=== PATIENT | female | born 1975 | race Caucasian/White ===

== ENCOUNTER 2020-07-11 07:04 | Outpatient (NON) | payer BC, SELFPAY ==
[2020-07-13 11:41] LABS: SARS-CoV-2 RNA PCR Negative
== END 2020-07-11 07:05 ==
PROVIDERS: PCP Family Medicine; Visit Provider Physician Assistant
DX: R05 Cough (principal); Z20.828 Contact with and (suspected) exposure to other viral communicable diseases
CPT/HCPCS: 87635; C9803; U0003

== ENCOUNTER → 2020-11-19 13:54 | Outpatient (CLI) | payer BC, SELFPAY ==
--- NOTE | ~2020-11-19 | MR_ITS ---
EXAMINATION: MR lumbar spine wo con DATE: 11/19/2020 14:28 INDICATION: Low back pain. Lumbar radiculopathy. TECHNIQUE: Magnetic resonance imaging (MRI) of the lumbar spine was performed without intravenous con trast. Sequences included sagittal T2-weighted FSE, sagittal T2-weighted FS FSE, sagittal T1-weighted FSE, and axial T2-weighted FSE. COMPARISON: CT abdomen and pelvis 02/26/13 FINDINGS: Bone alignment is normal. Vertebral body heights are normal. Intervertebral disc heights ar e normal. The distal spinal cord signal intensity is normal. The conus medullaris is at L2. The follo wing disc levels are specifically discussed: L1-L2: The disc does not extend beyond the endplate margin. There is mild bilateral facet joint osteo arthritis. There is no neural foraminal stenosis. There is no central canal stenosis. L2-L3: The disc does not extend beyond the endplate margin. There is mild bilateral facet joint osteo arthritis. There is no neural foraminal stenosis. There is no central canal stenosis. L3-L4: The disc does not extend beyond the endplate margin. There is mild bilateral facet joint osteo arthritis. There is no neural foraminal stenosis. There is no central canal stenosis. L4-L5: There is a left foraminal protrusion. There is mild bilateral facet joint osteoarthritis. Ther e is mild left neural foraminal stenosis. There is no central canal stenosis. L5-S1: There is a central protrusion with annular fissure. There is no facet joint osteoarthritis. Th ere is no neural foraminal stenosis. There is mild central canal stenosis. IMPRESSION: 1. Mild lumbar spondylosis. Reviewed, dictated and finalized at location A. KEEPER IMPRESSION: 1. Mild lumbar spondylosis.
== END ==
PROVIDERS: PCP Family Medicine; Visit Provider Physician Assistant Medical
DX: M47.26 Other spondylosis with radiculopathy, lumbar region (principal)
CPT/HCPCS: 72148

== ENCOUNTER 2021-01-07 13:02 | Outpatient (CLI) | payer BC, SELFPAY | END 2021-01-07 13:03 | disposition home or self-care (01) | LOC: ANHCOVIDVC 13:02 | PROVIDERS: PCP Family Medicine | DX: Z23 Encounter for immunization (principal) | CPT/HCPCS: 0001A; 91300 ==

== ENCOUNTER → 2021-01-07 14:00 | Outpatient (CLI) | payer BC, SELFPAY ==
--- NOTE | ~2021-01-07 | MM_ITS ---
EXAMINATION: MM screening felicia BI w malka HISTORY: Screening TECHNIQUE: Craniocaudal and mediolateral oblique 3-D tomosynthesis images were obtained and synthetic 2-D images were generated. CAD analysis was submitted and interpreted. COMPARISON: Comparison to multiple prior studies sequentially, with oldest reviewed study dated 03/21. BREAST PARENCHYMAL COMPOSITION: The breasts are heterogeneously dense, which may obscure small masses . FINDINGS: There is no evidence of suspicious mass, calcification, or architectural distortion to sugg est malignancy in either breast. There has been no suspicious interval change. IMPRESSION: 1. No mammographic evidence of malignancy. 2. Recommend routine screening mammography in one year. BI-RADS Category 1: Negative Reviewed, dictated and finalized at location A.
== END ==
PROVIDERS: Visit Provider Nurse Practitioner
DX: Z12.31 Encounter for screening mammogram for malignant neoplasm of breast (principal)
CPT/HCPCS: 77063; 77067

== ENCOUNTER 2021-01-28 13:00 | Outpatient (CLI) | payer BC, SELFPAY | END 2021-01-28 13:01 | disposition home or self-care (01) | LOC: ANHCOVIDVC 13:00 | DX: Z23 Encounter for immunization (principal) | CPT/HCPCS: 0002A; 91300 ==

== ENCOUNTER → 2022-01-24 15:56 | Outpatient (CLI) | payer BC, SELFPAY ==
--- NOTE | ~2022-01-24 | MM_ITS ---
EXAMINATION: MM screening felicia BI w malka HISTORY: Screening mammogram TECHNIQUE: Craniocaudal and mediolateral oblique 3-D tomosynthesis images were obtained and synthetic 2-D images were generated. CAD analysis was submitted and interpreted. COMPARISON: January 08, 2021, July 15, 2019, June 04, 2018 bilateral screening mammogram exam inations BREAST PARENCHYMAL COMPOSITION: The breasts are heterogeneously dense, which may obscure small masses . FINDINGS: There is no evidence of suspicious mass, calcification, or architectural distortion to sugg est malignancy in either breast. There has been no suspicious interval change. IMPRESSION: 1. No mammographic evidence of malignancy. 2. Recommend routine screening mammography in one year. BI-RADS Category 1: Negative Reviewed, dictated and finalized at location A.
== END ==
PROVIDERS: PCP Nurse Practitioner; Visit Provider Nurse Practitioner
DX: Z12.31 Encounter for screening mammogram for malignant neoplasm of breast (principal)
CPT/HCPCS: 77063; 77067

== ENCOUNTER 2022-04-11 12:10 | Emergency (ER) | payer BC, SELFPAY ==
[2022-04-11 12:32] VITALS: BP 150/90; PULSE 81; RESP 18; TEMP 36.9; O2SAT 100
--- NOTE | 2022-04-11 13:06 | ED.URI ---
HPI - URI/Sore Throat General Chief Complaint: Upper Respiratory Infection Stated Complaint: sinus pain and pressure,cough Time Seen by Provider: 04/11/22 12:54 Source: patient Mode of arrival: ambulatory Limitations: no limitations History of Present Illness HPI Narrative: Patient presents today with a 5-day history of sinus pressure, postnasal drip, nonproductive cough. Denies shortness of breath, fever, sore throat. She has been taking Mucinex D with mild relief. She did a home COVID-19 test 4 days ago that was negative. Related Data Home Medications Medication Instructions Recorded Confirmed escitalopram oxalate 10 mg tablet 10 mg PO DAILY 12/21/20 04/11/22 (Lexapro) norethindrone-e.estradiol 1 tablet DAILY 04/11/22 04/11/22 triphasic 0.5 mg/0.75 mg/1 mg-35 mcg tablet (Nortrel (28)) Allergies Allergy/AdvReac Type Severity Reaction Status Date / Time No Known Allergies Verified 04/11/22 12:42 Review of Systems Review of Systems: CONSTITUTIONAL: Denies body aches, fever, chills, or sweats. EYES: Denies visual changes, redness, or discharge. ENT: Denies rhinorrhea, sore throat, or otalgia.+ Sinus pressure, postnasal drip, nasal congestion CARDIOVASCULAR: Denies chest pain, palpitations, or edema. RESPIRATORY: Denies dyspnea.+ Cough GASTROINTESTINAL: Denies abdominal pain, nausea, vomiting, or diarrhea. GENITOURINARY: Denies dysuria or hematuria. SKIN: Denies rash, itching, or wounds. MUSCULOSKELETAL: Denies back pain, joint pain, or myalgia. NEUROLOGIC: Denies headache, numbness, tingling, or weakness. PSYCH: Denies depression or anxiety. [facility] Surgical History Surgical History History of mandibular surgery 2016 History of plastic surgery Social History Social History Alcohol intake: never Comments At time of signature, I have reviewed and agree with nursing past medical, surgical, social and family history unless otherwise noted. Please see nursing chart for further information. There is no relevant family history pertinent to the presenting complaint Exam Narrative: GENERAL: Mildly ill-appearing, well-nourished, and in no acute distress. HEAD: Normocephalic, atraumatic. EYES: EOMI. No redness or drainage. Conjunctivae normal. ENT: Mucous membranes pink and moist. Nares congested. Bilateral erythematous and swollen nasal turbinates without drainage. TMs normal bilaterally. Throat normal. Uvula midline. NECK: Normal AROM. Supple. No lymphadenopathy. CHEST: No respiratory distress. Clear to auscultation. Harsh cough noted. HEART: Regular rate and rhythm. No murmur appreciated. Normal peripheral pulses. EXTREMITIES: Normal range of motion. No edema. SKIN: Warm, dry, no rash. Capillary refill normal. Normal skin turgor. NEURO: No focal deficits. Alert and oriented x3. Gait steady. PSYCH: Normal affect. No signs of depression or anxiety. Course Course Level of Care: Express Care Visit Vital Signs Vital signs: Vital Signs Temperature 98.4 F 04/11/22 12:32 Pulse Rate 81 04/11/22 12:32 Respiratory Rate 18 04/11/22 12:32 Blood Pressure 150/90 H 04/11/22 12:32 Pulse Oximetry 100 04/11/22 12:32 Oxygen Delivery Room Air 04/11/22 12:32 Temperature 98.4 F 04/11/22 12:32 Pulse Rate 81 04/11/22 12:32 Respiratory Rate 18 04/11/22 12:32 Blood Pressure 150/90 H 04/11/22 12:32 Pulse Oximetry 100 04/11/22 12:32 Oxygen Delivery Room Air 04/11/22 12:32 Reviewed. Pt has been instructed to follow up with her PCP regarding her elevated blood pressure today. MDM - URI/Sore Throat Differential Diagnosis Differential diagnosis: Likely upper respiratory infection, sinusitis, viral infection and bronchitis Critical Care Time Critical Care Time Critical Care Time: No Discharge Plan Discharge Clinical Impression: Bro
== END 2022-04-11 13:18 | disposition home or self-care (01) ==
PROVIDERS: Emergency Provider Nurse Practitioner; PCP Family Medicine
DX: J40 Bronchitis, not specified as acute or chronic (principal); J06.9 Acute upper respiratory infection, unspecified
CPT/HCPCS: 99213; G0463

== ENCOUNTER 2022-07-14 01:42 | Day surgery (SDC) | payer BC, SELFPAY ==
[2022-07-14 08:52] VITALS: BP 168/99; PULSE 114; RESP 24; TEMP 36.6; O2SAT 100; BMI 31.2
[2022-07-14] MEDS: LACTATED RINGERS 1,000 ML 150 ML IV CONT (09:08)
--- NOTE | 2022-07-14 09:16 | SUR.PREOP ---
MD Marrufo made aware of Vitals. Pt last took medications on the . denies any symptoms. no new orders.
--- NOTE | 2022-07-14 09:28 | PM.HPGS ---
History of Present Illness History of Present Illness Consent: Risks, benefits, and alternatives have been discussed and questions answered. Patient agrees to proceed with procedure. Chief complaint: neoplasm screening Narrative: Lisbeth Norwood is a 46 year old female Presents for screening colonoscopy. Because she has attained the age of 46. Patient's current weight appetite bowel movements are normal. Patient denies abdominal pain. She has had no bleeding. Patient reports episode of diverticulitis in January of this year. Her bowel habits have returned to normal. She no longer has abdominal pain. Family history is noncontributory. Current bowel movements are normal. Review of Systems Review of Systems: Review of systems noncontributory. [facility] Surgical History Surgical History History of mandibular surgery 2016 History of plastic surgery Social History Social History (Updated 05/23/22 @ 15:45 by Jolie Oswald MA) Smoking status: Former smoker Tobacco type: cigarettes Alcohol intake: never Substance use: never Substance use type: does not use Living arrangements: with family Spiritual care concerns: No Agree to blood products: Yes Meds Home Medications and Allergies Home Medications Medication Instructions Recorded Confirmed Type escitalopram oxalate 10 mg tablet 10 mg PO DAILY 12/21/20 06/29/22 History (Lexapro) atorvastatin 10 mg tablet 10 mg PO DAILY #90 tabs 08/30/21 06/29/22 Rx nebivolol 5 mg tablet (Bystolic) 5 mg PO DAILY #90 tabs 10/18/21 06/29/22 Rx albuterol sulfate 90 mcg/actuation 2 puff inhalation Q4-6H PRN 04/11/22 06/29/22 Rx aerosol inhaler (ProAir HFA) shortness of breath or wheezing #18 grams norethindrone-e.estradiol 1 tablet PO DAILY 04/11/22 06/29/22 History triphasic 0.5 mg/0.75 mg/1 mg-35 mcg tablet (Nortrel (28)) duloxetine 20 mg capsule,delayed 20 mg PO DAILY 05/23/22 06/29/22 History release (Cymbalta) gabapentin 600 mg tablet See Rx Instructions PO DAILY 05/23/22 06/29/22 History sodium,potassium,mag sulfates 17.5 See Rx Instructions PO .COMPLEX 06/02/22 07/14/22 Rx gram-3.13 gram-1.6 gram oral soln #354 mL (Suprep Bowel Prep Kit) Allergies Allergy/AdvReac Type Severity Reaction Status Date / Time No Known Allergies Allergy Verified 07/14/22 08:44 Vital Signs Vital Signs - 24 hr 07/14/22 08:52 Temperature 97.8 F Pulse Rate 114 H Respiratory Rate 24 H Blood Pressure 168/99 H Pulse Oximetry 100 Oxygen Delivery Room Air Exam Narrative: Physical exam reveals patient to be alert. Vital signs stable. HEENT exam is unremarkable. Patient is anicteric. Lungs are clear to auscultation and percussion. Heart is without murmur or extra sounds. Abdomen bowel sounds are present soft nontender with no organomegaly. Digital external rectal exam is normal. Assessment and Plan Assessment and plan (1) Encounter for screening colonoscopy: Code(s): Z12.11 - Encounter for screening for malignant neoplasm of colon Status: Acute Assessment and Plan: Patient presents for screening colonoscopy. Appears to be at average risk for colon polyps. Plan is for high-fiber diet. Further recommendations will be given after endoscopy.
--- NOTE | 2022-07-14 09:30 | P.PNAN_ITS ---
Anes - Initial Pre Proc Eval Procedure: Operation Date: 07/14/22 09:30 Proposed Procedures p Screening Colonoscopy - Eliel Gauthier MD Date/Time: 07/14/22 09:30 Surgeon: Eliel Gauthier MD Pre Op Diagnosis: neoplasm screening Patient Data Age: 46 Gender: F Height: 1.65 m Weight: 85.1 kg Last Vital Signs Temp 97.8 F 07/14/22 08:52 Pulse 114 H 07/14/22 08:52 Resp 24 H 07/14/22 08:52 BP 168/99 H 07/14/22 08:52 Pulse Ox 100 07/14/22 08:52 O2 Del Method Room Air 07/14/22 08:52 Allergies Allergy/AdvReac Type Severity Reaction Status Date / Time No Known Allergies Allergy Verified 07/14/22 08:44 Home Medications Medication Instructions Recorded Confirmed Type escitalopram oxalate 10 mg tablet 10 mg PO DAILY 12/21/20 06/29/22 History (Lexapro) atorvastatin 10 mg tablet 10 mg PO DAILY #90 tabs 08/30/21 06/29/22 Rx nebivolol 5 mg tablet (Bystolic) 5 mg PO DAILY #90 tabs 10/18/21 06/29/22 Rx albuterol sulfate 90 mcg/actuation 2 puff inhalation Q4-6H PRN 04/11/22 06/29/22 Rx aerosol inhaler (ProAir HFA) shortness of breath or wheezing #18 grams norethindrone-e.estradiol 1 tablet PO DAILY 04/11/22 06/29/22 History triphasic 0.5 mg/0.75 mg/1 mg-35 mcg tablet (Nortrel (28)) duloxetine 20 mg capsule,delayed 20 mg PO DAILY 05/23/22 06/29/22 History release (Cymbalta) gabapentin 600 mg tablet See Rx Instructions PO DAILY 05/23/22 06/29/22 History sodium,potassium,mag sulfates 17.5 See Rx Instructions PO .COMPLEX 06/02/22 07/14/22 Rx gram-3.13 gram-1.6 gram oral soln #354 mL (Suprep Bowel Prep Kit) Patient hx anesthesia problems: none Family hx anesthesia problems: none Results Review: All pre-operative results and documents have been reviewed as part of the pre- operative evaluation. PMFSH Surgical History Surgical History History of mandibular surgery 2016 History of plastic surgery Social History Social History (Updated 05/23/22 @ 15:45 by Jolie Oswald MA) Smoking status: Former smoker Tobacco type: cigarettes Alcohol intake: never Substance use: never Substance use type: does not use Living arrangements: with family Spiritual care concerns: No Agree to blood products: Yes Anes - Eval Final PreProcedure Day of Procedure 07/14/22 09:30 Patient weight: obese Heart: regular rate and rhythm Lungs: clear to auscultation Airway: Mallampati scale class II Neurological: alert and oriented Last oral intake: >/= 8 hours ASA classification: III Emergent: no Anesthetic plan: proceed Anesthesia type and monitoring: general GIVS and standard monitoring Results Review: All pre-operative results and documents have been reviewed as part of the pre- operative evaluation. Informed Consent: The patient's anesthetic plan and its attendant risks and benefits were discussed with the patient/family/POA. Questions were solicited and answers provided to the satisfaction of the patient/family/POA.
[2022-07-14 10:06] VITALS: BP 122/81; PULSE 102; RESP 25; O2SAT 98
[2022-07-14 10:16] VITALS: BP 128/85; PULSE 93; RESP 27; O2SAT 99
[2022-07-14 10:26] VITALS: BP 138/92; PULSE 87; RESP 18; O2SAT 100
== END 2022-07-14 10:35 | disposition home or self-care (01) ==
PROVIDERS: PCP Family Medicine; Visit Provider Internal Medicine Gastroenterology
PROC: 0DJD8ZZ Inspection of Lower Intestinal Tract, Via Natural or Artificial Opening Endoscopic (ICD-10-PCS; CPT 45378; principal; 2022-07-14 09:30)
DX: Z12.11 Encounter for screening for malignant neoplasm of colon (principal); K57.30 Diverticulosis of large intestine without perforation or abscess without bleeding; K63.5 Polyp of colon; Z87.19 Personal history of other diseases of the digestive system; Z79.51 Long term (current) use of inhaled steroids; Z87.891 Personal history of nicotine dependence; E66.9 Obesity, unspecified; Z68.31 Body mass index [BMI] 31.0-31.9, adult
CPT/HCPCS: 45380; 88305; J2405; J2704; J7120

== ENCOUNTER → 2023-01-09 14:43 | Outpatient (CLI) | payer BC, SELFPAY ==
--- NOTE | ~2023-01-09 | US_ITS ---
EXAMINATION: US pelvic complete DATE: 01/09/2023 15:07 INDICATION: Pelvic and perineal pain Comparison:Ultrasound dated 05/16/2017 TECHNIQUE: Multiple transabdominal and endovaginal sonographic images of the pelvis performed. FINDINGS: The uterus measures 8 x 4.4 x 5.5 cm. There is a uterine fibroid posteriorly at the fundus measuring 1.6 cm. The endometrial complex measures 3 mm. The right ovary measures 2 x 1.1 x 1.1 cm and the left ovary measures 1.9 x 2.2 x 1.6 cm. There are small follicles in each ovary. Normal doppler signal in both ovaries. There is no free fluid in the pelvis. There are no abnormal masses seen on either side. IMPRESSION: 1. Uterine fibroid measuring 1.6 cm. Reviewed, dictated and finalized at location A.
== END ==
PROVIDERS: PCP Family Medicine; Visit Provider Nurse Practitioner
DX: R10.2 Pelvic and perineal pain (principal); D25.9 Leiomyoma of uterus, unspecified
CPT/HCPCS: 76856

== ENCOUNTER → 2023-08-25 10:31 | Outpatient (CLI) | payer BC, SELFPAY ==
--- NOTE | ~2023-08-25 | MR_ITS ---
MRI of the lumbar spine Clinical History: Mononeuropathy Technique: Axial T2-weighted images, and sagittal T1-weighted, T2-weighted, and and T2 fat-sat images were acquired. COMPARISON: 11/19/2020 Findings: There is no fracture or subluxation of lumbar spine. Vertebral bodies maintain normal heigh t and alignment. Mild diffuse T1 hypointense marrow signal suggests underlying red marrow conversion. At L1-L2, L2-L3, L3-4, L4-L5, there is no disc bulge or herniation. There are mild to moderate degene rative facet joint changes at these levels. No spinal canal stenosis or neural foraminal narrowing at these levels. At L5-S1, there is broad-based central posterior disc protrusion which minimally effaces the ventral thecal sac. There is moderate to advanced facet arthropathy. No central canal stenosis or definite ne ural foraminal narrowing. Paravertebral soft tissues are unremarkable. Impression: Mild degenerative spondylosis at L5-S1, as detailed above. Reviewed, dictated and finalized at location . ETHYLENE COMBINER Impression: Mild degenerative spondylosis at L5-S1, as detailed above.
== END ==
PROVIDERS: PCP Family Medicine; Visit Provider Nurse Practitioner Family
DX: G58.9 Mononeuropathy, unspecified (principal); M47.897 Other spondylosis, lumbosacral region
CPT/HCPCS: 72148

== ENCOUNTER 2024-01-11 09:49 | Outpatient (CLI) | payer BC, SELFPAY ==
--- NOTE | ~2024-01-11 | XR_ITS ---
XR chest 2V 01/11/2024 10:11 Indication: Cough Procedure: PA and lateral views of the chest Comparison: No prior studies for comparison. Findings: There is right middle lobe airspace disease which may represent atelectasis or pneumonia. H eart size normal. No pleural effusion, edema or pneumothorax. Impression: 1: Right middle lobe airspace disease, atelectasis versus pneumonia. Reviewed, dictated and finalized at location B. Impression: 1: Right middle lobe airspace disease, atelectasis versus pneumonia.
== END 2024-01-11 09:50 ==
PROVIDERS: PCP Family Medicine; Visit Provider Nurse Practitioner Family
DX: R05.9 Cough, unspecified (principal); R91.8 Other nonspecific abnormal finding of lung field
CPT/HCPCS: 71046

== ENCOUNTER 2024-05-29 13:03 | Outpatient (CLI) | payer BC, SELFPAY ==
--- NOTE | ~2024-05-29 | MR_ITS ---
EXAMINATION: MR brain/brain stem wo con DATE: 05/29/2024 14:43 INDICATION: Demyelinating disease. Lightheadedness. Loss of balance. TECHNIQUE: Magnetic resonance imaging (MRI) of the brain and brainstem was performed without intraven ous contrast. COMPARISON: None. FINDINGS: There is no intracranial hemorrhage, acute infarction, or abnormal intracranial mass lesion . The ventricles are normal in size. The orbits are normal. The paranasal sinuses are clear. The mast oid air cells are normal. IMPRESSION: 1. Normal brain. Reviewed, dictated and finalized at location A. IMPRESSION: 1. Normal brain.
== END 2024-05-29 13:04 | disposition home or self-care (01) ==
PROVIDERS: PCP Family Medicine; Visit Provider Nurse Practitioner Family
DX: R42 Dizziness and giddiness (principal); R26.81 Unsteadiness on feet
CPT/HCPCS: 70551

== ENCOUNTER 2024-12-26 12:44 | Outpatient (CLI) | payer BC, SELFPAY ==
--- NOTE | ~2024-12-26 | MM_ITS ---
EXAMINATION: MM screening felicia BI w malka HISTORY: Screening TECHNIQUE: Craniocaudal and mediolateral oblique 3-D tomosynthesis images were obtained and synthetic 2-D images were generated. CAD analysis was submitted and interpreted. COMPARISON: Comparison to multiple prior studies sequentially, with oldest reviewed study dated 10/2016. BREAST PARENCHYMAL COMPOSITION: Not dense: There are scattered areas of fibroglandular density. FINDINGS: There is no evidence of suspicious mass, calcification, or architectural distortion to sugg est malignancy in either breast. There has been no suspicious interval change. IMPRESSION: 1. No mammographic evidence of malignancy. 2. Recommend routine screening mammography in one year. BI-RADS Category 1: Negative Reviewed, dictated and finalized at location A.
== END 2024-12-26 12:45 | disposition home or self-care (01) ==
LOC: MICIMG 12:46
PROVIDERS: PCP Family Medicine; Visit Provider Nurse Practitioner
DX: Z12.31 Encounter for screening mammogram for malignant neoplasm of breast (principal)
CPT/HCPCS: 77063; 77067

== ENCOUNTER 2025-05-09 10:30 | Outpatient (RCR) | payer BC, SELFPAY | END 2025-06-02 12:28 | disposition home or self-care (01) | LOC: ANHDMC 10:30 | PROVIDERS: PCP Family Medicine; Visit Provider Nurse Practitioner Family | DX: E11.9 Type 2 diabetes mellitus without complications (principal); Z71.3 Dietary counseling and surveillance | CPT/HCPCS: G0108 ==

== ENCOUNTER 2025-07-04 09:05 | Outpatient (RCR) | payer BC, SELFPAY | END 2025-09-22 12:50 | disposition home or self-care (01) | LOC: ANHDMC 09:05 | PROVIDERS: PCP Family Medicine; Visit Provider Nurse Practitioner Family | DX: E11.9 Type 2 diabetes mellitus without complications (principal); Z71.89 Other specified counseling | CPT/HCPCS: G0108 ==

== ENCOUNTER 2025-07-29 14:34 | Outpatient (CLI) | payer BC, SELFPAY ==
--- NOTE | ~2025-07-29 | XR_ITS ---
XR lumbar spine 6V w bending Indication: M43.06 - Spondylolysis, lumbar region Comparison: None Findings: No fracture, no subluxation flexion and extension Moderate loss of disc at L5-S1.. Soft tissues unremarkable Impression: No acute abnormality. Reviewed, dictated and finalized at location P. ER LAP MACHINE TENDER Impression: No acute abnormality.
--- NOTE | ~2025-07-29 | MR_ITS ---
MR lumbar spine wo con INDICATION: M54.16 - Radiculopathy, lumbar region . COMPARISON: None. TECHNIQUE: Multiplanar multisequence MRI of the lumbar spine were obtained without infusion of gadolinium. FINDINGS: [place] is made of five lumbar vertebrae. There is grade 1 degenerative retrolisthesis of L5 on S1. There are diminished disc signal and disc height at L5-S1 consistent with degenerative disc desiccation. No intrathecal mass is seen. There are no areas of pathologic signal intensity within the bone marrow to suggest an acute fracture or neoplasm. The conus medullaris terminates at the normal level. L1-L2: Mild disc bulging without significant central canal or neural foraminal stenosis. L2-L3: There is mild disc bulging without significant central canal and neural foraminal stenosis.. L3-L4: There is mild disc bulging without significant central canal and neural foraminal stenosis. L4-L5: There is disc bulging resulting in mild neural foraminal narrowing. There is effacement of the anterior thecal sac. There is mild central canal narrowing. L5-S1: There is posterior disc bulging with annular tear are noted. There is resulting moderate to severe narrowing of the left lateral recess and mild to moderate left neural foraminal narrowing. There is moderate narrowing of the right lateral recess and mild to moderate left neural foraminal narrowing. IMPRESSION: Degenerative changes are noted most significant at L5-S1 with there is a disc bulging with annular tear noted. This results in moderate to severe narrowing of the left lateral recess and moderate narrowing of the right lateral recess. There is mild to moderate bilateral neural foraminal narrowing. Mild central canal narrowing is noted. There is no compression fracture or abnormal cord signal intensity. Reviewed, dictated and finalized at location S. TOP LINER IMPRESSION: Degenerative changes are noted most significant at L5-S1 with there is a disc b ulging with annular tear noted. This results in moderate to severe narrowing of the left lateral recess and moderate narrowing of the right lateral recess. Th ere is mild to moderate bilateral neural foraminal narrowing. Mild central gaurang l narrowing is noted. There is no compression fracture or abnormal cord signal intensity.
== END 2025-07-29 14:35 | disposition home or self-care (01) ==
LOC: MICIMG 14:34
PROVIDERS: PCP Family Medicine; Visit Provider Nurse Practitioner Adult Health
DX: M54.16 Radiculopathy, lumbar region (principal); M43.06 Spondylolysis, lumbar region; M54.9 Dorsalgia, unspecified
CPT/HCPCS: 72114; 72148

== ENCOUNTER 2025-08-26 02:55 | Day surgery (SDC) | payer BC, SELFPAY ==
[2025-08-18 12:57] VITALS: BMI 29.9
--- NOTE | 2025-08-18 13:06 | SUR.PREOP ---
[facility] has started construction of its new state of the art ER which will open Spring 2026. With this, we anticipate parking may be a challenge for some our surgical patients and families. Parking spaces are limited but are available for all Surgical, obstetrics, and ER patients sharing this lot. If you arrive and find you are having a hard time finding a parking space, please note that we understand the challenges, please drive around the hospital and park near Hospital Entrance 1. When you enter this entrance, you can ask a volunteer to direct or take you back to the surgical waiting area to check in. We appreciate everyone?s understanding of these expected challenges while we build for your future. Report to the Outpatient Waiting Room, entrance under the green pavilion located off [address], at time 8a.m. on date 08/26/2025. Planned Procedure Time: 9:00a.m.? Time changes happen often and if your time is changed the preop area will call you the afternoon before. - You and your visitor will be asked to self-screen and do not enter if you have any COVID symptoms. Please call surgeon if you need to reschedule. - A mask is optional within the hospital at this time. Take only the following medications with a SIP of water on the morning of surgery: Albuterol, alprazolam, atorvastatin, Valium, duloxetine, Glyxambi, hydrocodone-acetaminophen, lisinopril, meclizine, tramadol, omeprazole, Bystolic DO NOT STOP ANY OF YOUR OTHER PRESCRIPTION MEDICATIONS PRIOR TO SURGERY EXCEPT THE FOLLOWING Medications to discontinue per physician NONE Date to take last dose N/A Please no make-up, nail malay, hairspray, perfume, deodorant, or body powder the day of surgery.? No jewelry (including any body piercings) or valuables the day of surgery, leave them at home.?Wear comfortable, loose fitting clothing.? Children are encouraged to wear pajamas. - Jewelry must be removed prior to entering the operating room.? Rings and piercings that are not removed may be cut off. - The hospital will not accept responsibility for valuables.? - Please leave all valuables, including medications, at home the day of surgery. If you are going home after surgery, a licensed ross carrier driver must drive you home.? No Driving for 24 hours For Pediatric surgeries, we recommend two adults accompany the child home. Follow any additional instructions given to you from your surgeon. Telephone instructions given to Lisbeth Angelesany and asked if any additional questions and then verbalized understanding. Patient advised to call surgeon office or pre surgery nurse liaison [phone] if any additional questions. 1. It is alright to eat a light breakfast. Do not eat or drink anything other than scheduled medications with small amounts of clear liquid (water) for two hours prior to procedure. 2. Take a bath/shower the evening before and morning of procedure. 3. Please take your scheduled medications, especially blood pressure and diabetes medications as prescribed, with small sips of water prior to procedure. You may also take your prescribed pain medications as needed. 4. Patient is not allowed to drive 24 hours after procedure.
--- NOTE | ~2025-08-26 | XR_ITS ---
XR fluoroscopy no charge Indication:bilateral L5-S1 transforaminal epidural injection TECHNIQUE: Fluoroscopy used during bilateral L5-S1 transforaminal epidural injection performed by [Helder London MD] on 08/26/2025. 46 seconds of fluoroscopy time with 59 fluoroscopic images captured. FINDINGS: Correlate with procedure note. IMPRESSION: Fluoroscopy used during bilateral L5-S1 transforaminal epidural injection. Reviewed, dictated and finalized at location I. ORATE EXECUTIVE IMPRESSION: Fluoroscopy used during bilateral L5-S1 transforaminal epidural inj ection.
--- OUTSIDE RECORDS SUMMARY | 2025-08-26 02:57 | XMS_ITS | Clinical Summary ---
Author Organization [facility] Address [address] [place] [address] Phone Care Team Providers Care Taxicab Dispatcher Name Role Phone Adalberto Vargas MD Primary Care Provider +1- [phone] Samira Espana APRN, FIRE CAPTAIN Unavailable +1- [phone] Allergies No known active allergies Medications atorvastatin (LIPITOR) 10 MG Tablet Take 10 mg by mouth daily. Active nebivolol (BYSTOLIC) 5 MG Tablet Take 5 mg by mouth daily. Active lisinopril (PRINIVIL, ZESTRIL) 10 MG Tablet Take 10 mg by mouth daily. Active cetirizine (ZyrTEC) 10 MG Tablet Take 10 mg by mouth. Active omeprazole (PriLOSEC) 20 MG CAPSULE DELAYED RELEASE Take 20 mg by mouth daily. Active ALPRAZolam (XANAX) 0.25 MG Tablet Take 0.25 mg by mouth daily as needed. Active Slynd 4 MG Tablet Take 1 Tablet by mouth daily. 4 Active meclizine (ANTIVERT) 25 MG Tablet Take 25 mg by mouth 3 times daily as needed for Dizziness. Active traMADol (ULTRAM) 50 MG Tablet take 1 to 2 tablets by mouth every 6 hours as needed for pain 5 Active Empagliflozin- linaGLIPtin (Glyxambi) 10-5 MG Tablet Take 1 Tablet by mouth daily. Active DULoxetine (CYMBALTA) [address] ParticlesIndic ations:Neuropa thy Take 1 Capsule by mouth daily. 90 Capsule 3 5 Active cyclobenzaprin e (FLEXERIL) 10 MG TabletIndicati ons:Restless leg syndrome Take 1 Tablet by mouth 2 times daily as needed for Muscle spasms. 30 Tablet 6 5 Active pregabalin (Lyrica) 150 MG CapsuleIndicat ions:Neuropath ic Pain Take 1 Capsule by mouth 3 times daily. Indications: Neuropathic Pain 90 Capsule 3 5 Active pregabalin (LYRICA) 100 MG CapsuleIndicat ions:Neuropath y Take 1 Capsule by mouth 3 times daily. 270 Capsule 5 08/11/20 25 Discontin ued(Dose adjustmen t) Active Problems No known active problems Encounters Date Type Department Care Team Description 08/11/2025 1:00 PM GAS MANAGER Telemedicine [facility] Neurology [facility] [address] [place] [address] Samira Espana APRN, FIRE CAPTAIN Neuropathy (Primary Dx); Restless leg syndrome 08/11/2025 Telephone [facility] [address] [place] [address] Samira Espana APRN, FIRE CAPTAIN 08/10/2025 Travel 06/23/2025 Refill [facility] [address] [place] [address] Samira Espana APRN, FIRE CAPTAIN from Last 3 Months Family History Medical History Relation Name Comments Diabetes Maternal Grandmother Heart Attack Maternal Grandmother Stroke Maternal Grandmother Stroke Paternal Grandfather Diabetes Paternal Grandmother Relation Name Status Comments Maternal Grandmother Paternal Grandfather Paternal Grandmother Social History Tobacco Use Types Packs/Day Years Used Date Smoking Tobacco: Never Smokeless Tobacco: Never Alcohol Use Standard Drinks/Week Comments Not Currently 0 (1 standard drink = 0.6 oz pur e alcohol) Comments No Sex and Gender Information Value Date Recorded Sex Assigned at Not on file Legal Sex Female 8:31 AM CDT Gender Identity Not on file Sexual Orientation Not on file Last Filed Vital Signs Vital Sign Reading Time Taken Comments Blood Pressure 110/60 09/12/2024 2:49 PM GAS MANAGER Pulse 123 09/12/2024 2:49 PM GAS MANAGER Temperature 35.9 C (96.6 F) 08/24/2021 10:09 AM GAS MANAGER Respiratory Rate 18 09/12/2024 2:46 PM GAS MANAGER Oxygen Saturation 95% 09/12/2024 2:46 PM GAS MANAGER Inhaled Oxygen Concentration - - Weight 87.4 kg (192 lb 9.6 oz) 09/12/2024 2:46 P M GAS MANAGER Height 165.1 cm (5' 5) 09/12/2024 2:46 PM GAS MANAGER Body Mass Index 32.05 09/12/2024 2:46 PM GAS MANAGER Plan of Treatment Health Maintenance Due Date Last Done Comments Hepatitis C Virus (HCV) Screening 1976 Mammogram 1976 Hepatitis B Immunization (1 of 3 - 19+ 3-dose series) 1995 Pap Smear 1997 Cervical Cancer Screening (CCS) 2006 HPV/Cotest 2006 Discussion re Starting/Frequency of Mammograms 2016 Cologuard 2021 Colonoscopy 2021 Colorectal Cancer Screening 2021 Immunochemical Fecal Occult Blood 2021 Influenza Immunization (#1) 2025 092 01/2023, 07/18/2022, 07/15/2021, Additional history exists SARS-COV-2 Immunization ( season) 2025 09/01/2021, 01/28/2021, 01/07/2021 Respiratory Syncytial Virus (RSV) Immunization (Adult) (1 - 1-dose 75+ series) 2051 DTaP/Tdap/Td Immunization Discontinued 07/18/2022, 09/1999 TdaP Immunization Completed 07/18/2022 Human Papillomavirus (HPV) Immunization Aged Out No longer eligible based on patient's age to complete this topic Meningococcal Immunization (ACWY) Aged Out No longer eligible based on patient's age to complete this topic Pneumococcal Immunization Combined Aged Out No longer eligible based on patient's age to complete this topic Rotavirus Immunization Aged Out No lo nger eligible based on patient's age to complete this topic Insurance [facility] Care Teams Taxicab Dispatcher Relationship Specialty Start Date End Date Adalberto Vargas MD [address] [place] [address] [address] [place] [address] PCP - General Family Medicine 07/21/21 Samira Espana APRN, FIRE CAPTAIN [address] [place] [address] Nurse Practitioner Advanced Practice Nurse 06/30/22
--- OUTSIDE RECORDS SUMMARY | 2025-08-26 02:57 | XMS_ITS | Encounter Summary ---
Author Organization [facility] Address [address] [place] [address] Phone Care Team Providers Care Skein Drier Name Role Phone Adalberto Vargas MD Primary Care Provider +1- [phone] Samira Espana APRN, SALES REPRESENTATIVE [facility] Unavailable +1- [phone] Reason for Visit * Reason Comments Medication Refill Encounter Details Date Type Department Care Team (Late st Contact Info) Description 11/06/2022 Refill [facility] - Neurology - [place] [address] [place] [address] Samira Espana APRN, SALES REPRESENTATIVE [facility] [address] [place] [address] Medication Refill Social History Tobacco Use Types Packs/Day Years Used Date Smoking Tobacco: Never Smokeless Tobacco: Never Alcohol Use Standard Drinks/Week Comments Not Currently 0 (1 standard drink = 0.6 oz pur e alcohol) Comments No Sex and Gender Information Value Date Recorded Sex Assigned at Not on file Legal Sex Female 8:31 AM CDT Gender Identity Not on file Sexual Orientation Not on file documented as of this encounter Plan of Treatment Not on file documented as of this encounter Visit Diagnoses Diagnosis Neuropathy Mononeuritis of unspecified site documented in this encounter Care Teams Skein Drier Relationship Specialty Start Date End Date Adalberto Vargas MD [address] [place] [address] [address] [place] [address] PCP - General Family Medicine 07/21/21 Samira Espana APRN, SALES REPRESENTATIVE [facility] [address] [place] [address] Nurse Practitioner Advanced Practice Nurse 06/30/22 documented as of this encounter
--- OUTSIDE RECORDS SUMMARY | 2025-08-26 02:57 | XMS_ITS | Encounter Summary ---
Author Organization [facility] Address [address] [place] [address] Phone Care Team Providers Care Dry Transfer Worker Name Role Phone Adalberto Vargas MD Primary Care Provider +1- [phone] Samira Espana APRN, FENCE INSTALLER HELPER Unavailable +1- [phone] Reason for Visit * Reason Comments Medication Refill Encounter Details Date Type Department Care Team (Late st Contact Info) Description 01/25/2023 Refill [facility] - Neurology - [place] [address] [place] [address] Samira Espana APRN, FENCE INSTALLER HELPER [address] [place] [address] Medication Refill Social History Tobacco Use Types [...] documented as of this encounter Visit Diagnoses Not on filedocumented in this encounter Care Teams Dry Transfer Worker Relationship Specialty Start Date End Date Adalberto Vargas MD [address] [place] [address] [place] [address] PCP - General Family Medicine 07/21/21 Samira Espana APRN, FENCE INSTALLER HELPER [address] [place] [address] Nurse Practitioner Advanced Practice Nurse 06/30/22 documented as of this encounter
--- OUTSIDE RECORDS SUMMARY | 2025-08-26 02:57 | XMS_ITS | Encounter Summary ---
Author Organization [facility] Address [address] [place] [address] Phone Care Team Providers Care Seafood Preparer Name Role Phone Adalberto Vargas MD Primary Care Provider +1- [phone] Samira Espana APRN, AUTOMOTIVE METALSMITH Unavailable +1- [phone] Reason for Visit * Reason Comments Medication Refill Encounter Details Date Type Department Care Team (Late st Contact Info) Description 11/01/2023 Refill [facility] - Neurology - [place] [address] [place] [id number] Samira Espana APRN, AUTOMOTIVE METALSMITH [address] [place] [address] Medication Refill Social History Tobacco Use Types [...] on file documented as of this encounter Miscellaneous Notes * Telephone Encounter - Fanny Huerta RN - 11/01/2023 3:38 PM CST Medication failed the protocol, provider to review and approve the medication order if appropriate. Requested Prescriptions Pending Prescriptions Disp Refills cyclobenzaprine (FLEXERIL) 10 MG Tablet [Pharmacy Med Name: CYCLOBENZAPRINE 10 MG TABLET] 30 Tablet2 Sig: TAKE 1 TABLET BY MOUTH 2 TIMES DAILY NEEDED FOR MUSCLE SPASMS. Not Delegated - Muscle Relaxants Protocol Failed - 11/01/2023 3:17 PM Failed - This refill cannot be delegated Passed - Visit with relevant provider in past 12 months or upcoming 90 days Recent Visits Date Type Provider Dept 09/12/23 Telemedicine Samira sEpana APRN, AUTOMOTIVE METALSMITH [facility] 05/19/23 Telemedicine Samira Espana APRN, AUTOMOTIVE METALSMITH [facility] 02/10/23 Telemedicine Samira Espana APRN, AUTOMOTIVE METALSMITH [facility] 11/18/22 Telemedicine Samira Espana APRN, [facility] Showing recent visits within past 365 days and meeting all other requirements Future Appointments No visits were found meeting these conditions. Showing future appointments within next 90 days and meeting all other requirements E DIMENSIONAL MAP MODELER documented in this encounter Plan of Treatment Not on file documented as of this encounter Visit Diagnoses Diagnosis Restless leg syndrome Restless legs syndrome (RLS) documented in this encounter Care Teams Seafood Preparer Relationship Specialty Start Date End Date Adalberto Vargas MD [address] [place] [address] [address] [place] [address] PCP - General Family Medicine 07/21/21 Samira Espana APRN, AUTOMOTIVE METALSMITH [address] [place] [address] Nurse Practitioner Advanced Practice Nurse 06/30/22 documented as of this encounter
--- OUTSIDE RECORDS SUMMARY | 2025-08-26 02:57 | XMS_ITS | Encounter Summary ---
Author Organization [facility] Address [address] [place] [address] Phone Care Team Providers Care Lei Maker Name Role Phone Adalberto Vargas MD Primary Care Provider +1- [phone] Samira Espana APRN, BLOCK ENGRAVER Unavailable +1- [phone] Reason for Visit * Reason Comments Medication Refill Encounter Details Date Type Department Care Team (Late st Contact Info) Description 08/26/2023 Refill [facility] - Neurology - [place] [address] [place] [address] Samira Espana APRN, BLOCK ENGRAVER [address] [place] [address] Medication Refill Social History Tobacco Use Types [...] Telephone Encounter - Fanny Huerta RN - 08/28/2023 8:31 AM CST Medication failed the protocol, provider to review and approve the medication order if appropriate. Requested Prescriptions Pending Prescriptions Disp Refills cyclobenzaprine (FLEXERIL) 10 MG Tablet [Pharmacy Med Name: CYCLOBENZAPRINE 10 MG TABLET] 30 Tablet2 Sig: Take 1 Tablet by mouth 2 times daily as needed for Muscle spasms. Not Delegated - Muscle Relaxants Protocol Failed - 08/26/2023 4:48 PM Failed - This refill cannot be delegated Passed - Visit with relevant provider in past 12 months or upcoming 90 days Recent Visits Date Type Provider Dept 05/19/23 Telemedicine Samira Espana APRN, [facility] Neu[facility] [address] 02/10/23 Telemedicine Samira Espana APRN, BLOCK ENGRAVER [facility] 11/18/22 Telemedicine Samira Espana APRN, [facility] Showing recent visits within past 365 days and meeting all other requirements Future Appointments Date Type Provider Dept 09/12/23 Appointment Samira Espana APRN, [facility] Showing future appointments within next 90 days and meeting all other requirements LEMAKER documented in this encounter Plan of Treatment Not on file documented as of this encounter Visit Diagnoses Diagnosis Restless leg syndrome Restless legs syndrome (RLS) documented in this encounter Care Teams Lei Maker Relationship Specialty Start Date End Date Adalberto Vargas MD [address] [place] [address] [address] [place] [address] PCP - General Family Medicine 07/21/21 Samira Espana APRN, BLOCK ENGRAVER [address] [place] [address] Nurse Practitioner Advanced Practice Nurse 06/30/22 documented as of this encounter
--- OUTSIDE RECORDS SUMMARY | 2025-08-26 02:57 | XMS_ITS | Encounter Summary ---
Author Organization [facility] Address [address] [place] [address] Phone Care Team Providers Care Trauma Program Manager Name Role Phone Adalberto Vargas MD Primary Care Provider +1- [phone] Samira Espana APRN, PROTOTYPE SEWER Unavailable +1- [phone] Reason for Visit * Reason Comments Medication Refill Encounter Details Date Type Department Care Team (Late st Contact Info) Description 02/28/2022 Refill [facility] - Neurology - [place] [address] [place] [address] Samira Espana APRN, PROTOTYPE SEWER [address] [place] [address] Medication Refill Social History Tobacco Use Types [...] on filedocumented in this encounter Care Teams Trauma Program Manager Relationship Specialty Start Date End Date Adalberto Vargas MD [address] [place] [address] [place] [address] PCP - General Family Medicine 07/21/21 Samira Espana APRN, PROTOTYPE SEWER [address] [place] [address] Nurse Practitioner Advanced Practice Nurse 06/30/22 documented as of this encounter
--- OUTSIDE RECORDS SUMMARY | 2025-08-26 02:57 | XMS_ITS | Encounter Summary ---
Author Organization [facility] Address [address] [place] [address] Phone Care Team Providers Care Fruit Thinner Name Role Phone Adalberto Vargas MD Primary Care Provider +1- [phone] Samira Espana APRN, TINT LAYER Unavailable +1- [phone] Reason for Visit * Reason Comments Medication Refill Encounter Details Date Type Department Care Team (Late st Contact Info) Description 05/13/2023 Refill [facility] - Neurology - [place] [address] [place] [phone] Samira Espana APRN, TINT LAYER [address] [place] [address] Medication Refill Social History Tobacco Use Types [...] on file Sexual Orientation Not on file COVID-19 Exposure Response Date Recorded In the last 10 days, have yo u been in contact with someone who was confirmed or suspected to have Coronavirus/COVID-19? No / Unsure 05/16/2023 7:50 AM CDT documented as of this encounter Miscellaneous Notes * Telephone Encounter - Fanny Huerta RN - 05/14/2023 7:44 PM CDT Medication failed the protocol, provider to review and approve the medication order if appropriate. Requested Prescriptions Pending Prescriptions Disp Refills DULoxetine (CYMBALTA) [address] Belkys [Pharmacy Med Name: DULOXETINE HCL DR 60 MG CAP] 90 Capsule Sig: TAKE 1 CAPSULE BY MOUTH EVERY DAY SNRI (6 Month Refill Only) Protocol Failed - 05/13/2023 7:08 AM Failed - Patient has established therapy with Serotonin-Norepinephrine Reuptake Inhibitors for at least 6 months Passed - No test in the past 12 months or most recent test was negative Passed - No active on record Passed - Visit with relevant provider in past 6 months or upcoming 90 days Recent Visits Date Type Provider Dept 02/10/23 Telemedicine Samira Espana APRN, TINT LAYER [facility] Neu[facility] 11/18/22 Telemedicine Samira Espana APRN, [facility] Showing recent visits within past 182 days and meeting all other requirements Future Appointments Date Type Provider Dept 05/19/23 Appointment Samira Espana APRN, TINT LAYER [facility] Showing future appointments within next 90 days and meeting all other requirements Passed - Has an encounter in the past 6 months with a depression or anxiety visit diagnosis documented in this encounter Plan of Treatment Not on file documented as of this encounter Visit Diagnoses Diagnosis Neuropathy Mononeuritis of unspecified site Anxiety Anxiety state, unspecified documented in this encounter Care Teams Fruit Thinner Relationship Specialty Start Date End Date Adalberto Vargas MD [address] [place] [address] [address] [place] [address] PCP - General Family Medicine 07/21/21 Samira Espana APRN, TINT LAYER [address] [place] [address] Nurse Practitioner Advanced Practice Nurse 06/30/22 documented as of this encounter
--- OUTSIDE RECORDS SUMMARY | 2025-08-26 02:57 | XMS_ITS | Encounter Summary ---
Author Organization [facility] Address [address] [place] [address] Phone Care Team Providers Care Photographic Reproduction Technician Name Role Phone Adalberto Vargas MD Primary Care Provider +1- [phone] Samira Espana APRN, TONG CARRIER Unavailable +1- [phone] Reason for Visit * Reason Comments Medication Refill Encounter Details Date Type Department Care Team (Late st Contact Info) Description 02/26/2023 Refill [facility] - Neurology - [place] [address] [place] [address] Samira Espana APRN, TONG CARRIER [address] [place] [address] Medication Refill Social History Tobacco Use Types [...] suspected to have Coronavirus/COVID-19? No / Unsure 02/06/2023 10:44 AM CDT documented as of this encounter Plan of Treatment Not on file documented as of this encounter Visit Diagnoses Diagnosis Restless leg syndrome Restless legs syndrome (RLS) documented in this encounter Care Teams Photographic Reproduction Technician Relationship Specialty Start Date End Date Adalberto Vargas MD [address] [facility] [address] [place] [address] PCP - General Family Medicine 07/21/21 Samira Espana APRN, TONG CARRIER [address] [place] [address] Nurse Practitioner Advanced Practice Nurse 06/30/22 documented as of this encounter
--- OUTSIDE RECORDS SUMMARY | 2025-08-26 02:57 | XMS_ITS | Clinical Summary ---
Author Organization [facility] Address [address] [place] [address] Care Team Providers Care Manager Field Service Name Role Phone Adalberto Vargas MD Primary Care Provider +1- [phone] Allergies No known active allergies Medications nebivolol (BYSTOLIC) 5 mg Tablet Take 5 mg by mouth daily at bedtime. Active escitalopram oxalate (LEXAPRO) 10 mg tablet Take 10 mg by mouth daily at bedtime. Active atorvastatin (LIPITOR) 10 mg tablet Take 10 mg by mouth Daily LATE. Active norethindrone-et hin estradiol (ORTHO-NOVUM 1-35) 1-35 mg-mcg tablet Take 1 Tablet by mouth daily at bedtime. Active cetirizine (ZyrTEC) 10 mg tablet Take 10 mg by mouth daily at bedtime. Active multivitamin (DAILY-MAICO) tablet Take 1 Tablet by mouth daily. Active LACTOBACILLUS COMBO NO.6 (PROBIOTIC COMPLEX ORAL) Take 1 Tablet by mouth daily. Active oxyCODONE-acetam inophen (PERCOCET) 5-325 mg tablet Take 1 Tablet by mouth every 4 hours as needed for Pain. Max Daily Amount: 6 Tablet 30 Tablet 0 05/18/2016 Active Social History Tobacco Use Types Packs/Day Years Used Date Smoking Tobacco: Former Alcohol Use Standard Drinks/Week Comments No 0 (1 standard drink = 0.6 oz pur e alcohol) Comments Unknown Sex and Gender Information Value Date Recorded Sex Assigned at Not on file Legal Sex Female 2:07 PM CDT Gender Identity Not on file Sexual Orientation Not on file Last Filed Vital Signs Vital Sign Reading Time Taken Comments Blood Pressure 141/86 05/18/2016 6:40 PM CDT Pulse 99 05/18/2016 6:40 PM CDT Temperature 36.4 C (97.5 F) 05/18/2016 6:40 PM CDT Respiratory Rate 16 05/18/2016 6:40 PM CDT Oxygen Saturation 97% 05/18/2016 6:40 PM CDT Inhaled Oxygen Concentration - - Weight 81.4 kg (179 lb 6.4 oz) 05/18/2016 10:44 AM CDT Height 165.1 cm (5' 5) 04/28/2016 10:12 AM CDT Body Mass Index 29.85 04/28/2016 10:12 AM CDT Plan of Treatment Health Maintenance Due Date Last Done Comments DTAP/TDAP/TD VACCINES (1 - Tdap) 1995 HEPATITIS B VACCINES (1 of 3 - 19+ 3-dose series) 09/25 HPV/Cotest (21-29) 1997 CERVICAL CANCER SCREENING 2006 HPV/Cotest (30-65) 2006 PAP SMEAR 2006 BREAST CANCER SCREENING 2016 COLORECTAL SCREENING 2021 Colorectal Cancer Screening 2021 FIT-DNA Q 3 years 2021 FIT/FOBT Q 1 year 2021 Flex Sig/CT Colonography Q 5 years 2021 INFLUENZA VACCINE (#1) 2025 Insurance OPTIONS PPO [id number] Advance Directives For more information, please contact: [phone] * Full Code (Latest Code Status on File) Date Activated Date Inactivated Comments 05/18/2016 10:48 AM 05/18/2016 9:12 PM Care Teams Manager Field Service Relationship Specialty Start Date End Date Adalberto Vargas MD PCP - General Family Practice 02/15/16
--- OUTSIDE RECORDS SUMMARY | 2025-08-26 02:57 | XMS_ITS | Encounter Summary ---
Author Organization [facility] Address [address] [place] [address] Phone Care Team Providers Care Hemstitching Machine Operator Name Role Phone Adalberto Vargas MD Primary Care Provider +1- [phone] Samira Espana APRN, CONTENT PRODUCTION SPECIALIST Unavailable +1- [phone] Reason for Visit * Reason Comments Medication Refill Encounter Details Date Type Department Care Team (Late st Contact Info) Description 12/23/2022 Refill [facility] - Neurology - [place] [address] [place] [address] Samira Espana APRN, CONTENT PRODUCTION SPECIALIST [address] [place] [address] Medication Refill Social History Tobacco Use Types [...] site documented in this encounter Care Teams Hemstitching Machine Operator Relationship Specialty Start Date End Date Adalberto Vargas MD [address] [place] [address] [address] [place] [address] PCP - General Family Medicine 07/21/21 Samira Espana APRN, CONTENT PRODUCTION SPECIALIST [address] [place] [address] Nurse Practitioner Advanced Practice Nurse 06/30/22 documented as of this encounter
--- OUTSIDE RECORDS SUMMARY | 2025-08-26 02:57 | XMS_ITS | Encounter Summary ---
Author Organization [facility] Address [address] [place] [address] Phone Care Team Providers Care Health Services Director Name Role Phone Adalberto Vargas MD Primary Care Provider +1- [phone] Samira Espana APRN, HAMMERSMITH HELPER Unavailable +1- [phone] Reason for Visit * Reason Comments Medication Refill Encounter Details Date Type Department Care Team (Late st Contact Info) Description 06/18/2022 Refill [facility] - Neurology - [place] [address] [place] [address] Samira Espana APRN, HAMMERSMITH HELPER [address] [place] [address] Medication Refill Social History Tobacco Use Types [...] site documented in this encounter Care Teams Health Services Director Relationship Specialty Start Date End Date Adalberto Vargas MD [address] [place] [address] [address] [place] [address] PCP - General Family Medicine 07/21/21 Samira Espana APRN, HAMMERSMITH HELPER [address] [place] [address] Nurse Practitioner Advanced Practice Nurse 06/30/22 documented as of this encounter
--- OUTSIDE RECORDS SUMMARY | 2025-08-26 02:57 | XMS_ITS | Encounter Summary ---
Author Organization [facility] Address [address] [place] [address] Phone Care Team Providers Care Foster Winder Name Role Phone Adalberto Vargas MD Primary Care Provider +1- [phone] Samira Espana APRN, PURCHASER AUTOMOTIVE PARTS Unavailable +1- [phone] Reason for Visit * Reason Comments Medication Refill Encounter Details Date Type Department Care Team (Late st Contact Info) Description 10/19/2023 Refill [facility] - Neurology - [place] [address] [place] [id number] Samira Espana APRN, PURCHASER AUTOMOTIVE [employer]S [address] [place] [address] Medication Refill Social History Tobacco Use Types [...] Telephone Encounter - Fanny Huerta RN - 10/19/2023 11:39 AM CST Medication failed the protocol, provider to review and approve the medication order if appropriate. Requested Prescriptions Pending Prescriptions Disp Refills gabapentin (NEURONTIN) 600 MG Tablet [Pharmacy Med Name: GABAPENTIN 600 MG TABLET] 360 Tablet 2 Sig: TAKE 1 TABLET BY MOUTH FOUR TIMES A DAY Not Delegated - Anticonvulsants Excluding Benzodiazepines Protocol Failed - 10/19/2023 11:25 AM Failed - This refill cannot be delegated Passed - Visit with relevant provider in past 12 months or upcoming 90 days Recent Visits Date Type Provider Dept 09/12/23 Telemedicine Samira Espana APRN, PURCH[employer] [facility] 05/19/23 Telemedicine Samira Espana APRN, PURCH[employer]ER [employer] [facility] 02/10/23 Telemedicine Samira Espana APRN, PURCHASER AUT[employer]OT[employer] [facility] 11/18/22 Telemedicine Samira Espana APRN, PURCHASER AUTOMOT[employer] [facility] Showing recent visits within past 365 days and meeting all other requirements Future Appointments No visits were found meeting these conditions. Showing future appointments within next 90 days and meeting all other requirements [employer] documented in this encounter Plan of Treatment Not on file documented as of this encounter Visit Diagnoses Diagnosis Neuropathy Mononeuritis of unspecified site documented in this encounter Care Teams Foster Winder Relationship Specialty Start Date End Date Adalberto Vargas MD [address] [place] [address] [address] [place] [address] PCP - General Family Medicine 07/21/21 Samira Espana APRN, [employer]CH[employer] [address] [place] [address] Nurse Practitioner Advanced Practice Nurse 06/30/22 documented as of this encounter
--- OUTSIDE RECORDS SUMMARY | 2025-08-26 02:57 | XMS_ITS | Encounter Summary ---
Author Organization [facility] Address [address] [place] [address] Phone Care Team Providers Care Fisher Weir Name Role Phone Adalberto Vargas MD Primary Care Provider +1- [phone] Samira Espana APRN, MANAGER ROOM Unavailable +1- [phone] Reason for Visit * Reason Comments Medication Refill Encounter Details Date Type Department Care Team (Late st Contact Info) Description 01/10/2023 Refill [facility] - Neurology - [place] [address] [place] [address] Samira Espana APRN, MANAGER ROOM [address]2 [place] [address] Medication Refill Social History Tobacco Use Types [...] on filedocumented in this encounter Care Teams Fisher Weir Relationship Specialty Start Date End Date Adalberto Vargas MD [address] [place] [address] [place] [address] PCP - General Family Medicine 07/21/21 Samira Espana APRN, MANAGER ROOM [address]2 [place] [address] Nurse Practitioner Advanced Practice Nurse 06/30/22 documented as of this encounter
--- OUTSIDE RECORDS SUMMARY | 2025-08-26 02:57 | XMS_ITS | Encounter Summary ---
Author Organization [facility] Address [address] [place] [address] Phone Care Team Providers Care News Writer Name Role Phone Adalberto Vargas MD Primary Care Provider +1- [phone] Samira Espana APRN, STAPLER MACHINE Unavailable +1- [phone] Reason for Visit * Reason Comments Medication Refill Encounter Details Date Type Department Care Team (Late st Contact Info) Description 10/30/2021 Refill [facility] - Neurology - [place] [address] [place] [id number] Samira Espana APRN, STAPLER MACHINE [address] [place] [address] Medication Refill Social History Tobacco Use Types [...] Exposure Response Date Recorded In the last month, have you been in contact with someone who was confirmed or suspected to have Coronavirus / COVID-19? No / Unsure 10/04/2021 1:02 PM IS ARCHITECT documented as of this encounter Plan of Treatment Not on file documented as of this encounter Visit Diagnoses Not on filedocumented in this encounter Care Teams News Writer Relationship Specialty Start Date End Date Adalberto Vargas MD [facility] [facility] [address] [place] [address] PCP - General Family Medicine 07/21/21 Samira Espana APRN, STAPLER MACHINE [address] [place] [address] Nurse Practitioner Advanced Practice Nurse 06/30/22 documented as of this encounter
--- OUTSIDE RECORDS SUMMARY | 2025-08-26 02:57 | XMS_ITS | Encounter Summary ---
Author Organization [facility] Address [address] [place] [address] Phone Care Team Providers Care Tableman Name Role Phone Adalberto Vargas MD Primary Care Provider +1- [phone] Samira Espana APRN, RETINAL SURGEON Unavailable +1- [phone] Reason for Visit * Reason Comments Medication Refill Encounter Details Date Type Department Care Team (Late st Contact Info) Description 05/18/2022 Refill [facility] - Neurology - [place] [address] [place] [phone] Samira Espana APRN, RETINAL SURGEON [address] [place] [address] Medication Refill Social History Tobacco Use Types [...] suspected to have Coronavirus/COVID-19? No / Unsure 04/25/2022 2:21 PM CDT documented as of this encounter Plan of Treatment Not on file documented as of this encounter Visit Diagnoses Diagnosis Neuropathy Mononeuritis of unspecified site documented in this encounter Care Teams Tableman Relationship Specialty Start Date End Date Adalberto Vargas MD [address] [facility] [address] [place] [address] PCP - General Family Medicine 07/21/21 Samira Espana APRN, RETINAL SURGEON [address] [place] [address] Nurse Practitioner Advanced Practice Nurse 06/30/22 documented as of this encounter
--- OUTSIDE RECORDS SUMMARY | 2025-08-26 02:57 | XMS_ITS | Clinical Summary ---
Author Organization [facility] Address [facility] [place] [address] Care Team Providers Care Driller And Reamer Name Role Phone Adalberto Vargas MD Primary Care Provider +1- [phone] Allergies No known active allergies Medications HYDROcodone-acet aminophen 5-325 MG tabletIndication s:Acute Pain < 3 Day Supply Take 1 tablet by mouth every 6 (six) hours as needed for Pain. Indications : Acute Pain < 3 Day Supply 12 tablet 01/31/2022 Active Social History Tobacco Use Types Packs/Day Years Used Date Smoking Tobacco: Never Smokeless Tobacco: Never Alcohol Use Standard Drinks/Week Comments Not Currently 0 (1 standard drink = 0.6 oz pur e alcohol) Comments No Sex and Gender Information Value Date Recorded Sex Assigned at Not on file Legal Sex Female 7:46 PM CDT Gender Identity Not on file Sexual Orientation Not on file Last Filed Vital Signs Vital Sign Reading Time Taken Comments Blood Pressure 138/82 01/31/2022 12:00 AM CDT Pulse 95 01/31/2022 12:00 AM CDT Temperature 36.7 C (98.1 F) 01/30/2022 7:54 PM CDT Respiratory Rate 19 01/31/2022 12:00 AM CDT Oxygen Saturation 100% 01/31/2022 12:00 AM CDT Inhaled Oxygen Concentration - - Weight 81.6 kg (180 lb) 01/30/2022 7:54 PM CDT Height 165.1 cm (5' 5) 01/30/2022 7:54 PM CDT Body Mass Index 29.95 01/30/2022 7:54 PM CDT Plan of Treatment Health Maintenance Due Date Last Done Comments Cervical Cancer Screening Pap Smear (Age 30 to 64) Every 3 Years 1976 Colorectal Cancer Screening Colonoscopy (10 Years) 1976 Annual Physical 1979 Hepatitis C 1994 DTaP, Tdap and Td Vaccines (1 - Tdap) 1995 Hepatitis B Vaccines (1 of 3 - 19+ 3-dose series) 1995 Cervical Cancer Screening Pap with HPV Testing (Age 30 to 64) Every 5 Years 2006 Cervical Cancer Screening with HPV 2006 Mammogram Screening 2016 COVID-19 Vaccine ( season) 2025 09/01/2021, 01/28/2021, 01/07/2021 Influenza Adult (#1) 2025 07/15/2021, 07/16/2020, 06/21/2019, Additional history exists Hepatitis A Vaccines Aged Out No long er eligible based on patient's age to complete this topic Meningococcal B Vaccine Aged Out No l onger eligible based on patient's age to complete this topic Meningococcal Vaccine Aged Out No jorge fide eligible based on patient's age to complete this topic Pneumococcal Vaccine: Pediatrics (0 to 5 Years) and At-Risk Patients (6 to 49 Years) Aged Out No longer eligible based on patient's age to complete this topic RSV Immunizations Under 20 Months Aged Out No longer eligible based on patient's age to complete this topic Insurance Care Teams Driller And Reamer Relationship Specialty Start Date End Date Adalberto Vargas MD PCP - General FAMILY PRACTICE 01/30/22
--- OUTSIDE RECORDS SUMMARY | 2025-08-26 02:57 | XMS_ITS | Encounter Summary ---
Author Organization [facility] Address [address] [place] [address] Phone Care Team Providers Care Guide Rail Cleaner Name Role Phone Adalberto Varags MD Primary Care Provider +1- [phone] Samira Espana APRN, ANIMAL TRAPPER Unavailable +1- [phone] Reason for Visit * Reason Comments Medication Refill Encounter Details Date Type Department Care Team (Late st Contact Info) Description 07/11/2022 Refill [facility] - Neurology - [place] [address] [place] [phone] Samira Espana APRN, ANIMAL TRAPPER [address] [place] [address] Medication Refill Social History Tobacco Use Types [...] suspected to have Coronavirus/COVID-19? No / Unsure 06/30/2022 2:43 PM CDT documented as of this encounter Plan of Treatment Not on file documented as of this encounter Visit Diagnoses Diagnosis Restless leg syndrome Restless legs syndrome (RLS) documented in this encounter Care Teams Guide Rail Cleaner Relationship Specialty Start Date End Date Adalberto Vargas MD [address] [facility] [address] [place] [address] PCP - General Family Medicine 07/21/21 Samira Espana APRN, ANIMAL TRAPPER [address] [place] [address] Nurse Practitioner Advanced Practice Nurse 06/30/22 documented as of this encounter
--- NOTE | 2025-08-26 06:08 | WPDHPUPDATE1 ---
History and Physical Update Update Date/Time: 08/26/25 06:08 History and Physical has been reviewed, including an updated exam of the patient. There are NO changes in the patient's condition. Risks, benefits, and alternatives have been discussed and questions answered. Patient agrees to proceed with procedure.
--- NOTE | 2025-08-26 06:09 | P.OP_ITS ---
Procedure Note - Detailed Date of Procedure 08/26/25 Pre-op Diagnosis lumbar radiculopathy, spondylosis Post-op Diagnosis Same Procedure Performed Bilateral Lumbar Transforaminal Epidural Steroid Injection under Fluoroscopic Guidance and with Contrast Control at L5-S1. Surgeon Helder London MD Anesthesia Local Description of Procedure INFORMED CONSENT: Risks, benefits and alternatives to the procedure were discussed in detail with the patient who expressed explicit understanding and consent to proceed. Patient was informed verbally and in written form regarding the risks associated with the procedure including the low risk of serious infection, bleeding/bruising, allergic reaction, nerve or organ injury, paralysis, procedural site pain or discomfort, worsening pain and/or mobility, failure to treat and/or disfigurement. The patient expressed explicit understanding and consent to proceed. All materials required for the procedure were available prior to procedure start. Site and side was marked prior to procedure and confirmed in the presence of the patient. PROCEDURE IN DETAIL: The patient was brought to the procedural suite and placed in the prone position. Patient was made comfortable with use of pillows under the head/chest, hips and ankles. Skin overlying the injection site was prepared broadly with ChloraPrep applicator and draped in a sterile manner. Aseptic technique was employed throughout. The endplates of the vertebral body at the site of interest were aligned in the AP view. Ipsilateral oblique angulation was utilized to better visualize the neuroforamen of interest. Local anesthesia was established by infiltration with approximately 5 mL of 0.5% PF lidocaine via a 1-1/2 inch 27-gauge needle. A 22-gauge 5.0 inch Mary (pencil point) spinal needle was advanced until the needle approached the 6 o'clock position on the pedicle just superior to the exiting nerve root on the right at L4-5. Lateral view was utilized to confirm appropriate position of the needle tip within the superior and posterior portion of the respective foramen. In an AP view, 1 mL of Omnipaque 300 contrast medium was injected after negative aspiration for CSF, blood or other bodily fluid, showing appropriate neurogram without evidence of intravascular or intrathecal spread of contrast. Digital subtraction imaging was used with an additional 1ml of the same contrast medium to confirm absence of intravascular contrast spread. A 1mL solution containing 5 mg of dexamethasone was injected after negative repeat aspiration. Appropriate spread of the injectate was confirmed with washout of previously injected contrast. No parasthesias were elicited. Needle was removed completely intact without difficulty. The same exact procedure was repeated for all remaining levels on the contralateral side, left L5-S1 neuroforamen, modified as necessary to acc ommodate for the new target location with identical findings and results and no evidence of complication. Images were saved and documented in the patient chart. Patient's skin was cleaned and sterile bandage applied. The patient tolerated the procedure well. The patient was transported to the recovery area in stable condition where they were observed for an appropriate amount of time prior to discharge, without evidence of complication. The patient was instructed to avoid excessive activity for the next 48 hours, including climbing and frequent use of stairs. Showers only for 48 hours. They were instructed not to drive or operate heavy machinery for 24 hours. They are to monitor for severe headaches, fevers, chills, night sweats, erythema/swelling at the site or any other signs of infection, bleeding/bruising, bowel or bladder changes as well as new pain, weakness or numbness in the upper or lower extremity. Should they notice these changes, they are instructed to call our office immediately or report directly to the nearest Emergency Department if no answer or if after posted office hours. COMPLICATIONS: None COMMENTS: None CONTRAST WASTED: 26 mL Omnipaque 300. STEROID WASTED: 0 mg of dexamethasone. Complications No immediate complications Condition Stable Disposition Same day [facility] Billing Surgery - Charge Forward: Surgery Billing
[2025-08-26 07:50] VITALS: BP 116/65; PULSE 85; RESP 20; TEMP 36.4; O2SAT 97
[2025-08-26 08:27] VITALS: BP 104/75; PULSE 84; RESP 16; O2SAT 100
[2025-08-26] MEDS: dexAMETHasone SOD PHOS INJ 10 MG/ML 1 ML VIAL IM (08:30)
[2025-08-26 08:31] VITALS: PULSE 95; RESP 18; O2SAT 77
[2025-08-26] MEDS: LIDOCAINE 2% PF LOCAL INJ 5 ML VIAL INFILTRATE (08:32)
[2025-08-26] MEDS: LIDOCAINE 1% PF INJ 5 ML VIAL INFILTRATE (08:32)
[2025-08-26 08:33] VITALS: BP 93/57; PULSE 87; RESP 16; O2SAT 100
[2025-08-26 08:37] VITALS: BP 106/63; O2SAT 100
[2025-08-26 08:39] VITALS: BP 118/70; PULSE 77; RESP 16; O2SAT 96
== END 2025-08-26 09:02 | disposition home or self-care (01) ==
PROVIDERS: PCP Family Medicine; Visit Provider Anesthesiology Pain Medicine
PROC: (CPT 64483; principal; 2025-08-26 08:30)
DX: M47.26 Other spondylosis with radiculopathy, lumbar region (principal)
CPT/HCPCS: 64483; 99199; J1100; J2003; Q9965